=== PATIENT | female | born 1955 | race Caucasian/White ===

== ENCOUNTER 2019-04-28 10:13 | Outpatient (CLI) | payer MEDICARE, OTHER, SELFPAY ==
--- NOTE | 2019-04-28 10:22 | MM_ITS ---
WS: [id number] BILATERAL DIGITAL SCREENING MAMMOGRAPHY WITH CAD CLINICAL INFORMATION: SCREENING HISTORY: Screening mammogram. No current complaints. COMPARISON: April 01, 2018 TECHNIQUE: Bilateral CC and MLO views. FINDINGS: Scattered fibroglandular densities bilaterally. Stable left intramammary lymph node posterior depth. Vascular calcification. No suspicious focal mass, asymmetry, calcifications, or architectural distort ion. No evidence of malignancy. MM/[place] [id number] IMPRESSION: BI-RADS: 2-Benign FOLLOW UP: 1 Year Follow-up Recommend return to annual screening mammography.
== END 2019-04-28 10:14 | disposition home or self-care (01) ==
LOC: RADSHAW 10:16
PROVIDERS: Family Provider Nurse Practitioner; PCP Nurse Practitioner; Visit Provider Nurse Practitioner
DX: Z12.31 Encounter for screening mammogram for malignant neoplasm of breast (principal)
CPT/HCPCS: 77067

== ENCOUNTER → 2019-08-11 10:51 | Outpatient (BNVA) | payer MEDICARE, SELFPAY | PROVIDERS: Family Provider Nurse Practitioner; PCP Nurse Practitioner; Visit Provider Nurse Practitioner | DX: I10 Essential (primary) hypertension (principal); E78.2 Mixed hyperlipidemia; M54.12 Radiculopathy, cervical region; M79.7 Fibromyalgia | CPT/HCPCS: 80053; 80061; 85025 ==

== ENCOUNTER → 2019-12-09 16:24 | Outpatient (BNVA) | payer MEDICARE, SELFPAY | PROVIDERS: Family Provider Nurse Practitioner; PCP Nurse Practitioner; Visit Provider Nurse Practitioner | DX: M79.7 Fibromyalgia (principal); I10 Essential (primary) hypertension; E78.2 Mixed hyperlipidemia; M54.9 Dorsalgia, unspecified; R10.9 Unspecified abdominal pain | CPT/HCPCS: 80053; 81000; 85025 ==

== ENCOUNTER 2019-12-24 12:11 | Outpatient (CLI) | payer MEDICARE, SELFPAY ==
[2019-12-24] MEDS: iohexol 300 mg/mL 50 mL Btl IV (13:28)
--- NOTE | 2019-12-24 14:30 | CTR_ITS ---
PROCEDURE INFORMATION: Exam: CT Abdomen And Pelvis Without Contrast Exam date and time: 12/24/2019 12:24 PM Age: 64 years old Clinical indication: Abdominal pain; Localized; Prior surgery; Surgery type: Hyst, appy; Patient HX: Chronic left sided abd pain with posterior radiation; Additional info: Left anterior abdomen pain TECHNIQUE: Imaging protocol: Computed tomography of the abdomen and pelvis without contrast. Radiation optimization: All CT scans at this facility use at least one of these dose optimization techniques: automated exposure control; mA and/or kV adjustment per patient size (includes targeted exams where dose is matched to clinical indication); or iterative reconstruction. COMPARISON: [place]dom[place] [id number] 10/23/2016 9:40 AM RADIATION DOSE METRICS: Total DLP (mGy-cm): 1628.52 FINDINGS: Lungs: Scarring and/or atelectasis in the medial segment of the right middle lobe. Scarring and/or atelectasis in the inferior segment of the lingula. Bilateral discoid atelectasis and/or scarring. Pleural space: Possible tiny loculated right anterior lung base pneumothorax seen only on axial series 2, image 1. Liver: Normal. No mass. Gallbladder and bile ducts: Normal. No calcified stones. No ductal dilation. Pancreas: Normal. No ductal dilation. Spleen: One or more accessory splenules. Adrenals: Normal. No mass. Kidneys and ureters: One or more nonobstructing right renal calyceal stones. Stomach and bowel: Unremarkable. No obstruction. No mucosal thickening. Appendix: No evidence of appendicitis. Intraperitoneal space: Unremarkable. No free air. No significant fluid collection. Vasculature: Calcification of the abdominal aorta and/or iliac arteries consistent with atherosclerotic vessel disease. One or more calcified pelvic phleboliths. Lymph nodes: Unremarkable. No enlarged lymph nodes. Bladder: Unremarkable as visualized. Reproductive: Stable hysterectomy. Bones/joints: Moderate multilevel spine degenerative changes including degenerative disc disease, spondylosis and facet degenerative changes. Soft tissues: Unremarkable. CT/CT abdomen pelvis [facility] [id number] IMPRESSION: 1. Possible tiny loculated right anterior lung base pneumothorax seen only on axial series 2, image 1. 2. One or more nonobstructing right renal calyceal stones. Radiation Dose CTDIVOL = (mGy): DLP = 1628.52 (mGy-cm)
--- NOTE | 2019-12-24 15:15 | MRR_ITS ---
PROCEDURE INFORMATION: Exam: MR Thoracic Spine Without Contrast Exam date and time: 12/24/2019 4:42 PM Age: 64 years old Clinical indication: Pain in thoracic spine; Patient HX: Mid back pain under left breast and through back 2 or 3 months; Additional info: M54.9 dorsalgia, unspecified TECHNIQUE: Imaging protocol: Multiplanar magnetic resonance images of the thoracic spine without contrast. COMPARISON: MRI Thoracic Spine w/o* [id number] 09/24/2018 9:53 AM FINDINGS: Vertebrae: Mild thoracic spondylosis. Spinal cord: Normal signal. No cord compression. Discs/Spinal canal/Neural foramina: Stable degenerative disc disease with desiccation at every level. Stable [id number] T12-L1 and L1-L2 degenerative disc disease and spondylosis with minimal T12-L1 posterior disc bulge. No central stenosis or foraminal stenosis. Soft tissues: Unremarkable. 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 MR/MR thoracic spin wo con* [id number] IMPRESSION: 1. Mild thoracic spondylosis. 2. Stable degenerative disc disease with desiccation at every level. 3. Stable [id number] T12-L1 and L1-L2 degenerative disc disease and spondylosis with minimal T12-L1 posterior disc bulge.
== END 2019-12-24 12:12 | disposition home or self-care (01) ==
PROVIDERS: PCP Nurse Practitioner; Visit Provider Nurse Practitioner
DX: M54.9 Dorsalgia, unspecified (principal); R10.9 Unspecified abdominal pain; M47.814 Spondylosis without myelopathy or radiculopathy, thoracic region; M51.34 Other intervertebral disc degeneration, thoracic region; N20.0 Calculus of kidney
CPT/HCPCS: 72146; 74176

== ENCOUNTER → 2019-12-29 11:44 | Outpatient (BNVA) | payer MEDICARE, SELFPAY | PROVIDERS: PCP Nurse Practitioner; Visit Provider Nurse Practitioner | DX: M54.9 Dorsalgia, unspecified (principal); I10 Essential (primary) hypertension; M79.7 Fibromyalgia | CPT/HCPCS: 71046 ==

== ENCOUNTER → 2020-04-14 10:02 | Outpatient (BNVA) | payer MEDICARE, SELFPAY | PROVIDERS: PCP Nurse Practitioner; Visit Provider Nurse Practitioner | DX: R30.0 Dysuria (principal); I10 Essential (primary) hypertension; E78.2 Mixed hyperlipidemia | CPT/HCPCS: 80053; 80061; 81003 ==

== ENCOUNTER 2020-05-01 07:51 | Outpatient (CLI) | payer MEDICARE, SELFPAY ==
--- NOTE | 2020-05-01 07:58 | MM_ITS ---
WS: [id number] BILATERAL SCREENING DIGITAL MAMMOGRAM WITH CAD HISTORY: SCREENING COMPARISON: 04/28/2019 and 04/01/2018 Bilateral CC and MLO views submitted. Computer aided detection analyzed. Breast composition: There are scattered areas of fibroglandular density. No suspicious masses, microc alcifications or architectural distortion. Stable overall fibroglandular pattern. Benign breast arter ial calcifications. MM/[place] [id number] IMPRESSION: BI-RADS: 2-Benign FOLLOW UP: 1 Year Follow-up
== END 2020-05-01 07:52 | disposition home or self-care (01) ==
PROVIDERS: PCP Nurse Practitioner; Visit Provider Nurse Practitioner
DX: Z12.31 Encounter for screening mammogram for malignant neoplasm of breast (principal)
CPT/HCPCS: 77067

== ENCOUNTER 2020-06-21 10:01 | Outpatient (CLI) | payer MEDICARE, SELFPAY ==
--- NOTE | 2020-06-21 10:10 | XR_ITS ---
WS: [id number] Left leg including the tibia and fibula, 06/21/2020 Clinical Data: M89.8X6 - Other specified disorders of bone, lower leg Comparison: Left knee, 10/14/2018. Findings: No fractures or dislocations are seen. The tibia and fibula are intact. The soft tissues are normal. The visualized left knee and left ankle are not remarkable. There is a plantar spur. XR/XR tibia fibula LT 2V [id number] Impression: Negative for left leg fracture.
== END 2020-06-21 10:02 | disposition home or self-care (01) ==
PROVIDERS: PCP Nurse Practitioner; Visit Provider Nurse Practitioner
DX: M89.8X6 Other specified disorders of bone, lower leg (principal)
CPT/HCPCS: 73590

== ENCOUNTER 2020-08-31 14:15 | Outpatient (CLI) | payer MEDICARE, SELFPAY ==
--- NOTE | 2020-08-31 15:00 | USCV_ITS ---
Daisy Adkins Age: 65 Gender: F : 1955 Exam Date: 08/31/2020 14:32 Ordering Phys: Kassidy Murrieta STUDENT LIAISON OFFICER-C Technologist: Jamila Seymour Exam Location: [facility] [place] Indication: BRUISING HISTORY: Lower extremity swelling. PROCEDURES: Venous duplex imaging was performed in only the left lower extremity. The following venous structures were evaluated: common femoral vein, profunda vein, proximal portion of the greater saphenous vein, superficial femoral vein, and the popliteal vein. In addition, the posterior tibial and peroneal trunk were evaluated. Serial compression, augmentation maneuvers, and spectral Doppler flow evaluation were performed. FINDINGS: Normal 2-D Doppler and augmentation and compressibility throughout the lower extremity venous structures. Additional imaging through the proximal calf veins also reveals no thrombus. Limited evaluation of the greater saphenous vein is patent with no thrombus. CONCLUSIONS No DVT left lower extremity. Dr. Maris Zeng DO (Electronically Signed) Final Date: 31 Aug 2020 14:48 S
== END 2020-08-31 14:16 | disposition home or self-care (01) ==
LOC: RAD 14:19
PROVIDERS: PCP Nurse Practitioner; Visit Provider Nurse Practitioner Family
DX: M79.662 Pain in left lower leg (principal); M79.89 Other specified soft tissue disorders
CPT/HCPCS: 93971

== ENCOUNTER → 2020-10-06 11:21 | Outpatient (BNVA) | payer MEDICARE, SELFPAY | PROVIDERS: PCP Nurse Practitioner; Visit Provider Nurse Practitioner | DX: R30.0 Dysuria (principal); I10 Essential (primary) hypertension; E78.2 Mixed hyperlipidemia; M79.7 Fibromyalgia | CPT/HCPCS: 80053; 80061; 81003; 82607; 84443; 85025 ==

== ENCOUNTER 2021-07-05 09:50 | Outpatient (CLI) | payer MEDICARE, SELFPAY ==
--- NOTE | 2021-07-05 10:07 | MM_ITS ---
WS: [id number] SCREENING 3D TOMOSYNTHESIS DIGITAL MAMMOGRAM WITH CAD HISTORY: SCREENING COMPARISON: 05/01/2020, 04/28/2019 and 04/01/2018 Bilateral CC and MLO views submitted. Computer aided detection analyzed. Breast composition: There are scattered areas of fibroglandular density. 8 mm asymmetry noted central to the RIGHT nipple on the MLO projection. Not definitely visualized on the CC projection. This asym metry is more prominent than prior examinations. There is a benign stable lymph node in the posterior LEFT breast. MM/[place] [id number] IMPRESSION: BI-RADS: 0-Incomplete: Need additional imaging evaluation FOLLOW UP: Need Additional Imaging RIGHT breast: Spot compression views (CC and MLO). True ML. Ultrasound to follo w if abnormality persists.
== END 2021-07-05 09:51 | disposition home or self-care (01) ==
LOC: RADSHAW 09:52
PROVIDERS: PCP Nurse Practitioner; Visit Provider Nurse Practitioner
DX: Z12.31 Encounter for screening mammogram for malignant neoplasm of breast (principal)
CPT/HCPCS: 77063; 77067

== ENCOUNTER 2021-07-17 13:13 | Outpatient (CLI) | payer MEDICARE, SELFPAY ==
--- NOTE | 2021-07-17 13:23 | MM_ITS ---
WS: [id number] ADDITIONAL VIEWS RIGHT MAMMOGRAM RIGHT BREAST ULTRASOUND HISTORY: R92.8 - Other abnormal and inconclusive findings on mammogram. COMPARISON: 07/05/2021, 05/01/2020 and 04/28/2019 RIGHT MAMMOGRAM: Spot compression views and true ML. New very small asymmetry in the anterior RIGHT breast near 12:00 is reidentified. Margins are partial ly obscured. RIGHT BREAST ULTRASOUND 2-D and color Doppler imaging submitted. Ultrasound directed to the anterior breast at 12:00. There is a small hypoechoic, nearly anechoic nod ule which corresponds in shape and size to the mammographic abnormality. This nodule measures 3.2 x 3 mm. This is most consistent with a benign cyst. MM/[place] [id number] IMPRESSION: BI-RADS: 2-Benign FOLLOW UP: 1 Year Follow-up
== END 2021-07-17 13:14 | disposition home or self-care (01) ==
LOC: RAD 13:15
PROVIDERS: PCP Nurse Practitioner Family; Visit Provider Nurse Practitioner
DX: R92.8 Other abnormal and inconclusive findings on diagnostic imaging of breast (principal)
CPT/HCPCS: 76642; 77061